=== PATIENT | male | born 1990 | race African-American/Black ===

== ENCOUNTER 2018-03-16 17:01 | Emergency (ER) | payer BC | END 2018-03-16 18:31 | disposition home or self-care (01) | LOC: ER 17:01 | DX: S63.501A Unspecified sprain of right wrist, initial encounter (principal); S63.91XA Sprain of unspecified part of right wrist and hand, initial encounter; W18.39XA Other fall on same level, initial encounter; Y93.51 Activity, roller skating (inline) and skateboarding; Y99.8 Other external cause status; Y92.89 Other specified places as the place of occurrence of the external cause | CPT/HCPCS: 29125; 73110; 73130; 99284-25 ==